=== PATIENT | female | born 1960 | race Two or more races ===

== ENCOUNTER 2017-04-01 07:10 | Outpatient (CLI) | payer OTHER ==
[2017-04-01 07:39] LABS: HEMATOCRIT 42.8 % (36-48); HEMOGLOBIN 14.4 g/dL (12.0-16.0); MEAN CORPUSCULAR HEMOGLOBIN 30 pg (27-31); MEAN CORPUSCULAR HGB CONC 34 g/dL (33-37); MEAN CORPUSCULAR VOLUME 88 fL (80-94); PLATELET COUNT (AUTO) 196 K/uL (140-450); RED BLOOD CELL COUNT(AUTO) 4.87 MIL/uL (4.20-5.40); RED CELL DISTRIBUTION WIDTH 12.4 % (11.6-13.7); WHITE BLOOD COUNT (AUTO) 5.4 K/uL (4.8-10.8)
[2017-04-01 08:08] LABS: EOSINOPHILS % (MANUAL) 5 % (0-4); LYMPHOCYTES % (MANUAL) 42 % (20-46); MONOCYTES % (MANUAL) 11 % (5-12)
[2017-04-01 08:16] LABS: ALBUMIN 3.8 g/dL (3.4-5.0); ANION GAP 10.8 (8-16); CHOL/HDL RATIO 4.5 (1-4.5); CREATININE 0.9 mg/dL (0.6-1.3); POTASSIUM 3.8 mmol/L (3.5-5.1); THYROID STIMULATING HORMONE 2.83 uIU/mL (0.34-3.74); TOTAL BILIRUBIN 0.8 mg/dL (0.0-1.0)
== END 2017-04-01 21:01 | disposition home or self-care (01) ==
LOC: MLB 07:10
PROVIDERS: ATTEND Family Medicine
DX: I10 Essential (primary) hypertension (principal)
CPT/HCPCS: 36415; 80053; 84443; 85025

== ENCOUNTER 2018-06-23 09:21 | Outpatient (CLI) | payer OTHER ==
[2018-06-23 10:51] LABS: BASOPHILS % (AUTO) 0.3 % (0.0-2.0); EOSINOPHILS # (AUTO) 0.1 K/uL (0-0.4); EOSINOPHILS % (AUTO) 1.7 % (0.0-4.0); HEMATOCRIT 45.3 % (36-48); LYMPHOCYTES # (AUTO) 2.1 K/uL (2.5-16.5); LYMPHOCYTES % (AUTO) 37.4 % (20.5-51.1); MEAN CORPUSCULAR HEMOGLOBIN 30 pg (27-31); MEAN CORPUSCULAR HGB CONC 33 g/dL (33-37); MEAN CORPUSCULAR VOLUME 89.2 fL (80-94); MONOCYTES # (AUTO) 0.3 K/uL (0.8-1.0); MONOCYTES % (AUTO) 5.1 % (1.7-9.3); NEUTROPHILS % (AUTO) 55.5 % (42.2-75.2); PLATELET COUNT (AUTO) 214 K/uL (140-450); RED BLOOD CELL COUNT(AUTO) 5.07 MIL/uL (4.20-5.40); WHITE BLOOD COUNT (AUTO) 5.5 K/uL (4.8-10.8)
[2018-06-23 11:13] LABS: ALBUMIN 4.2 g/dL (3.4-5.0); ANION GAP 10.6 (8-16); CARBON DIOXIDE 30.6 mmol/L (21-32); CHOL/HDL RATIO 3.5 (1-4.5); CREATININE 1.2 mg/dL (0.6-1.3); POTASSIUM 4.2 mmol/L (3.5-5.1); THYROID STIMULATING HORMONE 3.17 uIU/mL (0.34-3.74); TOTAL BILIRUBIN 0.7 mg/dL (0.0-1.0)
== END 2018-06-23 20:37 | disposition home or self-care (01) ==
LOC: MLB 09:21
PROVIDERS: ATTEND Family Medicine
DX: I10 Essential (primary) hypertension (principal)
CPT/HCPCS: 36415; 80053; 82272; 84443; 85025

== ENCOUNTER 2019-03-09 08:58 | Outpatient (CLI) | payer OTHER ==
[2019-03-09 09:35] LABS: BASOPHILS % (AUTO) 0.4 % (0.0-2.0); EOSINOPHILS # (AUTO) 0.1 K/uL (0-0.4); HEMATOCRIT 43.8 % (36-48); HEMOGLOBIN 14.7 g/dL (12.0-16.0); LYMPHOCYTES # (AUTO) 1.7 K/uL (2.5-16.5); MEAN CORPUSCULAR HEMOGLOBIN 30 pg (27-31); MEAN CORPUSCULAR HGB CONC 34 g/dL (33-37); MEAN CORPUSCULAR VOLUME 88.4 fL (80-94); MONOCYTES # (AUTO) 0.2 K/uL (0.8-1.0); MONOCYTES % (AUTO) 5.3 % (1.7-9.3); NEUTROPHILS # (AUTO) 2.2 K/uL (1.8-7.7); NEUTROPHILS % (AUTO) 51.3 % (42.2-75.2); PLATELET COUNT (AUTO) 228 K/uL (140-450); RED BLOOD CELL COUNT(AUTO) 4.96 MIL/uL (4.20-5.40); RED CELL DISTRIBUTION WIDTH 12.8 % (11.6-13.7); WHITE BLOOD COUNT (AUTO) 4.3 K/uL (4.8-10.8)
[2019-03-09 09:50] LABS: ANION GAP 9.7 (8-16); CARBON DIOXIDE 29.7 mmol/L (21-32); CREATININE 0.9 mg/dL (0.6-1.3); POTASSIUM 4.4 mmol/L (3.5-5.1)
[2019-03-09 10:01] LABS: ALBUMIN 3.9 g/dL (3.4-5.0); CHOL/HDL RATIO 4.3 (1-4.5); THYROID STIMULATING HORMONE 1.44 uIU/mL (0.34-3.74); TOTAL BILIRUBIN 1.1 mg/dL (0.0-1.0)
== END 2019-03-09 21:17 | disposition home or self-care (01) ==
LOC: MLB 08:58
PROVIDERS: ATTEND Family Medicine
DX: I10 Essential (primary) hypertension (principal)
CPT/HCPCS: 36415; 80053; 83036; 84443; 85025

== ENCOUNTER 2019-06-08 08:09 | Outpatient (CLI) | payer OTHER ==
[2019-06-08 09:57] LABS: BASOPHILS % (AUTO) 0.3 % (0.0-2.0); EOSINOPHILS # (AUTO) 0.1 K/uL (0-0.4); EOSINOPHILS % (AUTO) 1.9 % (0.0-4.0); HEMATOCRIT 44.2 % (36-48); HEMOGLOBIN 14.5 g/dL (12.0-16.0); LYMPHOCYTES # (AUTO) 2.3 K/uL (2.5-16.5); LYMPHOCYTES % (AUTO) 49.2 % (20.5-51.1); MEAN CORPUSCULAR HEMOGLOBIN 30 pg (27-31); MEAN CORPUSCULAR HGB CONC 33 g/dL (33-37); MEAN CORPUSCULAR VOLUME 90.4 fL (80-94); MONOCYTES # (AUTO) 0.2 K/uL (0.8-1.0); MONOCYTES % (AUTO) 5.4 % (1.7-9.3); NEUTROPHILS % (AUTO) 43.2 % (42.2-75.2); PLATELET COUNT (AUTO) 211 K/uL (140-450); RED BLOOD CELL COUNT(AUTO) 4.88 MIL/uL (4.20-5.40); RED CELL DISTRIBUTION WIDTH 13.2 % (11.6-13.7); WHITE BLOOD COUNT (AUTO) 4.6 K/uL (4.8-10.8)
[2019-06-08 10:58] LABS: ANION GAP 12.6 (8-16); CARBON DIOXIDE 29.6 mmol/L (21-32); CREATININE 0.8 mg/dL (0.6-1.3); POTASSIUM 4.2 mmol/L (3.5-5.1); TOTAL BILIRUBIN 1.1 mg/dL (0.0-1.0)
== END 2019-06-08 20:57 | disposition home or self-care (01) ==
LOC: MLB 08:09
PROVIDERS: ATTEND Family Medicine
DX: M19.041 Primary osteoarthritis, right hand (principal)
CPT/HCPCS: 36415; 73130; 80053; 82272; 82306; 85025

== ENCOUNTER 2019-09-27 10:23 | Outpatient (CLI) | payer OTHER ==
[2019-09-27 11:03] LABS: ALBUMIN 3.9 g/dL (3.4-5.0); ANION GAP 10.5 (8-16); CARBON DIOXIDE 29.7 mmol/L (21-32); CHOL/HDL RATIO 3.9 (1-4.5); CREATININE 0.7 mg/dL (0.6-1.3); POTASSIUM 4.2 mmol/L (3.5-5.1); TOTAL BILIRUBIN 1.1 mg/dL (0.0-1.0)
[2019-09-27 11:04] LABS: BASOPHILS # (AUTO) 0.1 K/uL (0.00-0.22); BASOPHILS % (AUTO) 1.2 % (0.0-2.0); EOSINOPHILS # (AUTO) 0.1 K/uL (0-0.4); EOSINOPHILS % (AUTO) 1.4 % (0.0-4.0); HEMATOCRIT 43.8 % (36-48); HEMOGLOBIN 14.9 g/dL (12.0-16.0); LYMPHOCYTES # (AUTO) 1.8 K/uL (2.5-16.5); LYMPHOCYTES % (AUTO) 39.8 % (20.5-51.1); MEAN CORPUSCULAR HEMOGLOBIN 30 pg (27-31); MEAN CORPUSCULAR HGB CONC 34 g/dL (33-37); MEAN CORPUSCULAR VOLUME 87.4 fL (80-94); MONOCYTES # (AUTO) 0.2 K/uL (0.8-1.0); MONOCYTES % (AUTO) 4.7 % (1.7-9.3); NEUTROPHILS # (AUTO) 2.4 K/uL (1.8-7.7); NEUTROPHILS % (AUTO) 52.9 % (42.2-75.2); PLATELET COUNT (AUTO) 245 K/uL (140-450); RED BLOOD CELL COUNT(AUTO) 5.01 MIL/uL (4.20-5.40); RED CELL DISTRIBUTION WIDTH 12.5 % (11.6-13.7); WHITE BLOOD COUNT (AUTO) 4.6 K/uL (4.8-10.8)
== END 2019-09-27 21:16 | disposition home or self-care (01) ==
LOC: MLB 10:23
PROVIDERS: ATTEND Family Medicine
DX: I10 Essential (primary) hypertension (principal)
CPT/HCPCS: 36415; 80053; 82306; 85025

== ENCOUNTER 2020-08-24 07:26 | Outpatient (CLI) | payer OTHER ==
[2020-08-24 09:03] LABS: BASOPHILS % (AUTO) 0.8 % (0.0-2.0); EOSINOPHILS # (AUTO) 0.1 K/uL (0-0.4); HEMATOCRIT 43.7 % (36-48); HEMOGLOBIN 14.6 g/dL (12.0-16.0); LYMPHOCYTES # (AUTO) 1.5 K/uL (2.5-16.5); LYMPHOCYTES % (AUTO) 34.9 % (20.5-51.1); MEAN CORPUSCULAR HEMOGLOBIN 30 pg (27-31); MEAN CORPUSCULAR HGB CONC 33 g/dL (33-37); MEAN CORPUSCULAR VOLUME 89.7 fL (80-94); MONOCYTES # (AUTO) 0.2 K/uL (0.8-1.0); MONOCYTES % (AUTO) 5.5 % (1.7-9.3); NEUTROPHILS # (AUTO) 2.4 K/uL (1.8-7.7); NEUTROPHILS % (AUTO) 56.8 % (42.2-75.2); PLATELET COUNT (AUTO) 221 K/uL (140-450); RED BLOOD CELL COUNT(AUTO) 4.88 MIL/uL (4.20-5.40); RED CELL DISTRIBUTION WIDTH 12.9 % (11.6-13.7); WHITE BLOOD COUNT (AUTO) 4.2 K/uL (4.8-10.8)
[2020-08-24 10:23] LABS: ALBUMIN 4.1 g/dL (3.4-5.0); ANION GAP 6.7 (8-16); CARBON DIOXIDE 32.7 mmol/L (21-32); CHOL/HDL RATIO 3.9 (1-4.5); CREATININE 0.8 mg/dL (0.6-1.3); POTASSIUM 4.4 mmol/L (3.5-5.1); THYROID STIMULATING HORMONE 1.05 uIU/mL (0.34-3.74); TOTAL BILIRUBIN 0.8 mg/dL (0.0-1.0)
== END 2020-08-24 20:35 | disposition home or self-care (01) ==
LOC: MLB 07:26
PROVIDERS: ATTEND Family Medicine
DX: I10 Essential (primary) hypertension (principal)
CPT/HCPCS: 36415; 80053; 82306; 84443; 85025

== ENCOUNTER 2020-11-02 11:56 | Emergency (ER) | payer OTHER ==
[~2020-11-02] VITALS: Ht 165.1 cm; Wt 73.5 kg
[2020-11-02 12:05] VITALS: BP 147/80
--- NOTE | 2020-11-02 12:09 | NUR ---
Patient ambulated to bed 5 with family. RN evaluating the patient at bedside.
--- NOTE | 2020-11-02 12:12 | NUR ---
60 Y/O FEMALE FROM HOME C/O RIGHT KNEE PAIN THAT RADIATES TO RIGHT FOOT SINCE YESTERAY. DENIES TRAUMA/INJURY. NO SWELLING/BRUISING NOTED. PATIENT ABLE TO AMBULATE WITHOUT DIFFICULTY. SKIN WARM, DRY, INTACT. 5/10 PAIN. PT TOOK TYLENOL AT 0700 WITH MIMINAL RELIEF. MEDHX: HTN
[2020-11-02] MEDS ORDERED: KETOROLAC 60 MG/2 ML VIAL IM ONE (12:15)
--- NOTE | 2020-11-02 13:00 | NUR ---
Patient transferred to bed 4 for further care. RN is reevaluating the patient at bedside.
--- NOTE | 2020-11-02 13:04 | NUR ---
Dr. Triana is evaluating the patient at bedside.
--- NOTE | 2020-11-02 13:21 | NUR ---
ASSUMED CARE OF PATIENT.
[2020-11-02] MEDS ORDERED: ACET-8386 PO (13:29)
[2020-11-02] MEDS ORDERED: IBUP-2213 PO (13:29)
[2020-11-02 13:36] VITALS: BP 147/80
--- NOTE | 2020-11-02 13:36 | NUR ---
Patient discharged with v/s stable. Written and verbal after care instructions given and explained. Patient alert, oriented and verbalized understanding of instructions. Ambulatory with steady gait. All questions addressed prior to discharge. ID band removed. Patient advised to follow up with PMD. Rx of IBUPROFEN AND NORCO given. Patient educated on indication of medication including possible reaction and side effects. Opportunity to ask questions provided and answered.
== END 2020-11-02 13:36 | disposition home or self-care (01) ==
LOC: MED 11:56
DX: M25.561 Pain in right knee (principal); I10 Essential (primary) hypertension
CPT/HCPCS: 96372; 99283; J1885

== ENCOUNTER 2021-04-16 06:40 | Outpatient (CLI) | payer OTHER ==
[~2021-04-16 06:40] MED LIST: ACET-8386 PO; IBUP-2213 PO
[2021-04-16 08:55] LABS: ALBUMIN 3.9 g/dL (3.4-5.0); ANION GAP 9.2 (8-16); CHOL/HDL RATIO 4.1 (1-4.5); CREATININE 0.8 mg/dL (0.6-1.3); POTASSIUM 4.2 mmol/L (3.5-5.1); TOTAL BILIRUBIN 0.9 mg/dL (0.0-1.0)
== END 2021-04-16 20:32 | disposition home or self-care (01) ==
LOC: MLB 06:40
PROVIDERS: ATTEND Family Medicine
DX: I10 Essential (primary) hypertension (principal)
CPT/HCPCS: 36415; 80053

== ENCOUNTER 2021-12-11 07:45 | Outpatient (CLI) | payer OTHER ==
[2021-12-11 08:53] LABS: BASOPHILS % (AUTO) 0.3 % (0.0-2.0); EOSINOPHILS # (AUTO) 0.1 K/uL (0-0.4); EOSINOPHILS % (AUTO) 2.9 % (0.0-4.0); HEMATOCRIT 41.9 % (36-48); HEMOGLOBIN 13.9 g/dL (12.0-16.0); LYMPHOCYTES # (AUTO) 2.3 K/uL (2.5-16.5); LYMPHOCYTES % (AUTO) 45.2 % (20.5-51.1); MEAN CORPUSCULAR HEMOGLOBIN 30 pg (27-31); MEAN CORPUSCULAR HGB CONC 33 g/dL (33-37); MEAN CORPUSCULAR VOLUME 89.2 fL (80-94); MONOCYTES # (AUTO) 0.3 K/uL (0.8-1.0); MONOCYTES % (AUTO) 5.6 % (1.7-9.3); NEUTROPHILS # (AUTO) 2.4 K/uL (1.8-7.7); PLATELET COUNT (AUTO) 227 K/uL (140-450); RED CELL DISTRIBUTION WIDTH 12.9 % (11.6-13.7); WHITE BLOOD COUNT (AUTO) 5.2 K/uL (4.8-10.8)
[2021-12-11 09:15] LABS: ALBUMIN 3.8 g/dL (3.4-5.0); ANION GAP 5.6 (8-16); CARBON DIOXIDE 30.2 mmol/L (21-32); CHOL/HDL RATIO 4.5 (1-4.5); CREATININE 0.8 mg/dL (0.6-1.3); POTASSIUM 3.8 mmol/L (3.5-5.1); THYROID STIMULATING HORMONE 1.47 uIU/mL (0.34-3.74); TOTAL BILIRUBIN 0.7 mg/dL (0.0-1.0)
== END 2021-12-11 20:26 | disposition home or self-care (01) ==
LOC: MLB 07:45
PROVIDERS: ATTEND Family Medicine
DX: I10 Essential (primary) hypertension (principal)
CPT/HCPCS: 36415; 80053; 82272; 84443; 85025

== ENCOUNTER 2022-03-11 09:51 | Outpatient (CLI) | payer OTHER ==
[2022-03-11 10:39] LABS: ALBUMIN 3.7 g/dL (3.4-5.0); ANION GAP 10.3 (8-16); CHOL/HDL RATIO 4.1 (1-4.5); CREATININE 0.8 mg/dL (0.6-1.3); POTASSIUM 4.3 mmol/L (3.5-5.1)
== END 2022-03-11 20:08 | disposition home or self-care (01) ==
LOC: MLB 09:51
PROVIDERS: ATTEND Family Medicine
DX: E78.5 Hyperlipidemia, unspecified (principal)
CPT/HCPCS: 36415; 80053

== ENCOUNTER → 2022-05-15 | Outpatient (CLI) | payer OTHER ==
[2022-05-15 10:39] LABS: ALBUMIN 3.6 g/dL (3.4-5.0); ANION GAP 9.8 (8-16); CARBON DIOXIDE 31.6 mmol/L (21-32); CHOL/HDL RATIO 2.2 (1-4.5); CREATININE 0.9 mg/dL (0.6-1.3); POTASSIUM 4.4 mmol/L (3.5-5.1); TOTAL BILIRUBIN 0.7 mg/dL (0.0-1.0)
== END | disposition home or self-care (01) ==
LOC: MLB 10:00
PROVIDERS: ATTEND Family Medicine
DX: I10 Essential (primary) hypertension (principal); R73.01 Impaired fasting glucose
CPT/HCPCS: 36415; 80053; 83036

== ENCOUNTER 2022-11-25 08:39 | Outpatient (CLI) | payer OTHER ==
[~2022-11-25 08:39] MED LIST changes: -ACET-8386 PO; +ACET-8905 PO
[2022-11-25 09:17] LABS: BASOPHILS % (AUTO) 0.2 % (0.0-2.0); EOSINOPHILS # (AUTO) 0.1 K/uL (0-0.4); EOSINOPHILS % (AUTO) 2.2 % (0.0-4.0); HEMATOCRIT 41.2 % (36-48); HEMOGLOBIN 13.6 g/dL (12.0-16.0); LYMPHOCYTES # (AUTO) 2.4 K/uL (2.5-16.5); LYMPHOCYTES % (AUTO) 43.1 % (20.5-51.1); MEAN CORPUSCULAR HEMOGLOBIN 29 pg (27-31); MEAN CORPUSCULAR HGB CONC 33 g/dL (33-37); MEAN CORPUSCULAR VOLUME 88.9 fL (80-94); MONOCYTES # (AUTO) 0.3 K/uL (0.8-1.0); MONOCYTES % (AUTO) 6.1 % (1.7-9.3); NEUTROPHILS # (AUTO) 2.7 K/uL (1.8-7.7); NEUTROPHILS % (AUTO) 48.4 % (42.2-75.2); PLATELET COUNT (AUTO) 205 K/uL (140-450); RED BLOOD CELL COUNT(AUTO) 4.63 MIL/uL (4.20-5.40); RED CELL DISTRIBUTION WIDTH 13.5 % (11.6-13.7); WHITE BLOOD COUNT (AUTO) 5.5 K/uL (4.8-10.8)
[2022-11-25 09:54] LABS: ALBUMIN 3.6 g/dL (3.4-5.0); ANION GAP 8.1 (8-16); CARBON DIOXIDE 30.3 mmol/L (21-32); CREATININE 0.9 mg/dL (0.6-1.3); POTASSIUM 4.4 mmol/L (3.5-5.1); THYROID STIMULATING HORMONE 2.03 uIU/mL (0.34-3.74); TOTAL BILIRUBIN 0.7 mg/dL (0.0-1.0)
== END 2022-11-25 20:52 | disposition home or self-care (01) ==
LOC: MLB 08:39
PROVIDERS: ATTEND Family Medicine
DX: I10 Essential (primary) hypertension (principal); E78.5 Hyperlipidemia, unspecified
CPT/HCPCS: 36415; 80053; 84443; 85025

== ENCOUNTER 2023-06-20 08:01 | Outpatient (CLI) | payer OTHER ==
[2023-06-20 09:05] LABS: ALBUMIN 3.7 g/dL (3.4-5.0); ANION GAP 8.5 (8-16); CALCIUM 8.9 mg/dL (8.5-10.1); CARBON DIOXIDE 30.8 mmol/L (21-32); CHOL/HDL RATIO 2.3 (1-4.5); CREATININE 0.8 mg/dL (0.6-1.3); POTASSIUM 4.3 mmol/L (3.5-5.1); THYROID STIMULATING HORMONE 1.31 uIU/mL (0.34-3.74); TOTAL BILIRUBIN 0.9 mg/dL (0.0-1.0); TOTAL PROTEIN, SERUM 7.3 g/dL (6.4-8.2)
[2023-06-21 08:08] LABS: VITAMIN D, 25-HYDROXY 64.3 ng/mL (30.0-100.0)
== END 2023-06-20 20:08 | disposition home or self-care (01) ==
LOC: MLB 08:01
PROVIDERS: ATTEND Family Medicine
DX: I10 Essential (primary) hypertension (principal)
CPT/HCPCS: 36415; 80053; 82306; 83036; 84443

== ENCOUNTER 2023-12-15 09:15 | Outpatient (CLI) | payer OTHER ==
[2023-12-15 09:47] LABS: BASOPHILS % (AUTO) 0.4 % (0.0-2.0); EOSINOPHILS # (AUTO) 0.1 K/uL (0-0.4); EOSINOPHILS % (AUTO) 2.1 % (0.0-4.0); HEMOGLOBIN 14.2 g/dL (12.0-16.0); LYMPHOCYTES % (AUTO) 44.1 % (20.5-51.1); MEAN CORPUSCULAR HEMOGLOBIN 30 pg (27-31); MEAN CORPUSCULAR HGB CONC 34 g/dL (33-37); MEAN CORPUSCULAR VOLUME 89.4 fL (80-94); MONOCYTES # (AUTO) 0.2 K/uL (0.8-1.0); MONOCYTES % (AUTO) 5.3 % (1.7-9.3); NEUTROPHILS # (AUTO) 2.1 K/uL (1.8-7.7); NEUTROPHILS % (AUTO) 48.1 % (42.2-75.2); PLATELET COUNT (AUTO) 197 K/uL (140-450); WHITE BLOOD COUNT (AUTO) 4.4 K/uL (4.8-10.8)
[2023-12-15 10:21] LABS: ALBUMIN 3.9 g/dL (3.4-5.0); ANION GAP 13.9 (8-16); CALCIUM 9.1 mg/dL (8.5-10.1); CARBON DIOXIDE 28.1 mmol/L (21-32); CHOL/HDL RATIO 2.3 (1-4.5); THYROID STIMULATING HORMONE 1.64 uIU/mL (0.34-3.74); TOTAL PROTEIN, SERUM 7.2 g/dL (6.4-8.2)
== END 2023-12-15 20:21 | disposition home or self-care (01) ==
LOC: MLB 09:15
PROVIDERS: ATTEND Family Medicine
DX: I10 Essential (primary) hypertension (principal)
CPT/HCPCS: 36415; 80053; 82306; 84443; 85025